=== PATIENT | female | born 1990 | race Caucasian/White ===

== ENCOUNTER 2017-12-15 11:12 | Emergency (ER) | payer BC ==
--- NOTE | 2017-12-15 13:32 | ER ---
Nurse's Notes 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 Transition of care: patient was not received from another setting of care. Onset of symptoms was December 15, 2017. Risk Assessment: Do you want to hurt yourself or someone else? Patient reports no desire to harm self or others. Initial Sepsis Screen: Does the patient meet any 2 criteria? No. Patient's initial sepsis screen is negative. Does the patient have a suspected source of infection? Yes: Skin breakdown/wound. Care prior to arrival: None. 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 - Social history:: Smoking status: Patient uses tobacco products, smokes one pack cigarettes per day. - Ebola Screening: : Patient negative for fever greater than or equal to 101.5 degrees Fahrenheit, and additional compatible Ebola Virus Disease symptoms Patient denies exposure to infectious person Patient denies travel to an Ebola-affected area in the 21 days before illness onset No symptoms or risks identified at this time. - Family history:: not pertinent. Screenin:30 Abuse screen: Denies threats or abuse. Denies injuries from another. Nutritional ph screening: No deficits noted. Tuberculosis screening: No symptoms or risk factors identified. Fall Risk None identified. Assessment: 13:30 General: Appears in no apparent distress. uncomfortable, Behavior is calm, cooperative, ph appropriate for age. Pain: Complains of pain in groin. Neuro: Level of Consciousness is awake, alert, obeys commands, Oriented to person, place, time, situation. Cardiovascular: Capillary refill is > 3 seconds Patient's skin is warm and dry. Respiratory: Airway is patent Respiratory effort is even, unlabored. Derm: Skin is healthy with good turgor, Skin is pink, warm \\T\\ dry. Abscess located on clitoris is dime sized, has purulent drainage, is red, is raised, was lanced by patient prior to arrival, Reports. Musculoskeletal: Circulation, motion, and sensation intact. Range of motion: intact in all extremities. Vital Signs: 11:31 Pulse 95 MON; Resp 16; Temp 97.9; Pulse Ox 98% ; Weight 60.33 kg; Height 5 ft. 4 in. sg (162.56 cm); Pain 7/10; 11:34 BP 107 / 71; sg 13:45 BP 118 / 78; Pulse 91; Resp 18; Temp 98.2; Pulse Ox 99% on R/A; ph 11:31 Body Mass Index 22.83 (60.33 kg, 162.56 cm) ED Course: 11:13 Patient arrived in ED. as 11:13 Moni Beltran is Private Physician. as 11:14 Nathalie Maher MD is Private Physician. as 11:30 Arm band placed on. sg 11:31 Triage completed. sg 12:50 Patient did not have IV access during this emergency room visit. ph 13:13 Russell Garcias MD is Attending Physician. navin 13:23 Iman Judd, RN is Primary Nurse. ph 13:30 Nathalie Maher MD is Referral Physician. navin 13:30 Patient has correct armband on for positive identification. Bed in low position. Call ph light in reach. Side rails up X 1. Pulse ox on. NIBP on. 13:30 Wound culture swab sent to lab. 3 13:30 Assist provider with pelvic exam: Specimens sent to lab. Patient tolerated well. ph 16:19 Arm band placed on. ph Administered Medications: 13:45 Drug: [place] 10 mg-325 mg 1 tabs Route: PO; ph 13:50 Follow up: Response: No adverse reaction ph 13:45 Drug: Doxycycline 200 mg Route: PO; ph 13:50 Follow up: Response: No adverse reaction ph Outcome: 13:31 Discharge ordered by . navin 13:52 Patient left the ED. ph 13:52 Discharged to home ambulatory, with significant other. ph 13:52 Condition: good 13:52 Discharge instructions given to patient, Instructed on discharge instructions, follow up and referral plans. medication usage, Demonstrated understanding of instructions, follow-up care, medications, Prescriptions given X 2. Addendum: 12/19/2017 08:15 Addendum: Culture Results: Positive urine culture. No further action required. Bacteria i w sensitive to prescribed antibiotic. Signatures: Johann Raymond RN RN sg Anderson, Corey, MD MD cha Martinez, Amelia as Peggy Street RN RN Iman Judd RN RN Kyle, Devi [facility] Corrections: (The following items were deleted from the chart) 12/15 16:15 11:30 General: Appears in no apparent distress. uncomfortable, Behavior is calm, ph cooperative, appropriate for age, ph 16:15 11:30 Pain: Complains of pain in groin ph ph 16:15 11:30 Neuro: Level of Consciousness is awake, alert, obeys commands, Oriented to ph person, place, time, situation, ph 16:15 11:30 Cardiovascular: Capillary refill is > 3 seconds Patient's skin is warm and dry. phph 16:15 11:30 Respiratory: Airway is patent Respiratory effort is even, unlabored, ph ph 16:15 11:30 Derm: Skin is healthy with good turgor, Skin is pink, warm \\T\\ dry. Abscess located ph on clitoris is dime sized, has purulent drainage, is red, is raised, was lanced by patient prior to arrival, Reports ph 16:15 11:30 Musculoskeletal: Circulation, motion, and sensation intact. Range of motion: ph intact in all extremities, ph 16:16 11:30 Patient has correct armband on for positive identification. Bed in low position. ph Call light in reach. Side rails up X 1. ph 16:16 11:30 Pulse ox on. NIBP on. ph ph
--- NOTE | 2017-12-15 13:32 | EDPHYS ---
Physician Documentation [facility] Name: Cheryl Dinh Age: 27 yrs Sex: Female : 1990 Arrival Date: 12/15/2017 Time: 11:13 Bed 15 Private MD: Nathalie Maher K ED Physician Russell Garcias HPI: 12/15 13:26 This 27 yrs old Female presents to ER via Ambulatory with complaints of navin Abscess. 13:26 The patient presents with an abscess of the clitoris. Description: The affected area is navin small, localized, draining, erythematous, hot, swollen, tense. Onset: The symptoms/episode began/occurred 3 day(s) ago. Possible cause(s): unknown. Associated signs and symptoms: The patient has no apparent associated signs or symptoms. Modifying factors: the symptoms are alleviated by remaining still, the symptoms are aggravated by nothing. Severity of symptoms: At their worst the symptoms were moderate, in the emergency department the symptoms are unchanged. The patient has not experienced similar symptoms in the past. 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 - Social history:: Smoking status: Patient uses tobacco products, smokes one pack cigarettes per day. - Ebola Screening: : Patient negative for fever greater than or equal to 101.5 degrees Fahrenheit, and additional compatible Ebola Virus Disease symptoms Patient denies exposure to infectious person Patient denies travel to an Ebola-affected area in the 21 days before illness onset No symptoms or risks identified at this time. - Family history:: not pertinent. ROS: 13:26 Constitutional: Negative for fever, chills, and weight loss, Eyes: Negative for injury, navin pain, redness, and discharge, ENT: Negative for injury, pain, and discharge, Neck: Negative for injury, pain, and swelling, Cardiovascular: Negative for chest pain, palpitations, and edema, Respiratory: Negative for shortness of breath, cough, wheezing, and pleuritic chest pain, Abdomen/GI: Negative for abdominal pain, nausea, vomiting, diarrhea, and constipation, Back: Negative for injury and pain, MS/Extremity: Negative for injury and deformity, Skin: Negative for injury, rash, and discoloration, Neuro: Negative for headache, weakness, numbness, tingling, and seizure, Psych: Negative for depression, anxiety, suicide ideation, homicidal ideation, and hallucinations, Allergy/Immunology: Negative for hives, rash, and allergies, Endocrine: Negative for neck swelling, polydipsia, polyuria, polyphagia, and marked weight changes, Hematologic/Lymphatic: Negative for swollen nodes, abnormal bleeding, and unusual bruising. 13:26 : Positive for pelvic pain, of the clitoris. Exam: 13:26 Constitutional: This is a well developed, well nourished patient who is awake, alert, navin and in no acute distress. Head/Face: Normocephalic, atraumatic. Eyes: Pupils equal round and reactive to light, extra-ocular motions intact. Lids and lashes normal. Conjunctiva and sclera are non-icteric and not injected. Cornea within normal limits. Periorbital areas with no swelling, redness, or edema. ENT: Nares patent. No nasal discharge, no septal abnormalities noted. Tympanic membranes are normal and external auditory canals are clear. Oropharynx with no redness, swelling, or masses, exudates, or evidence of obstruction, uvula midline. Mucous membranes moist. Neck: Trachea midline, no thyromegaly or masses palpated, and no cervical lymphadenopathy. Supple, full range of motion without nuchal rigidity, or vertebral point tenderness. No Meningismus. Chest/axilla: Normal chest wall appearance and motion. Nontender with no deformity. No lesions are appreciated. Cardiovascular: Regular rate and rhythm with a normal S1 and S2. No gallops, murmurs, or rubs. Normal PMI, no JVD. No pulse deficits. Respiratory: Lungs have equal breath sounds bilaterally, clear to auscultation and percussion. No rales, rhonchi or wheezes noted. No increased work of breathing, no retractions or nasal flaring. Abdomen/GI: Soft, non-tender, with normal bowel sounds. No distension or tympany. No guarding or rebound. No evidence of tenderness throughout. Back: No spinal tenderness. No costovertebral tenderness. Full range of motion. Skin: Warm, dry with normal turgor. Normal color with no rashes, no lesions, and no evidence of cellulitis. MS/ Extremity: Pulses equal, no cyanosis. Neurovascular intact. Full, normal range of motion. Neuro: Awake and alert, GCS 15, oriented to person, place, time, and situation. Cranial nerves II-XII grossly intact. Motor strength 5/5 in all extremities. Sensory grossly intact. Cerebellar exam normal. Normal gait. 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 Vital Signs: 11:31 Pulse 95 MON; Resp 16; Temp 97.9; Pulse Ox 98% ; Weight 60.33 kg; Height 5 ft. 4 in. sg (162.56 cm); Pain 7/10; 11:34 BP 107 / 71; sg 13:45 BP 118 / 78; Pulse 91; Resp 18; Temp 98.2; Pulse Ox 99% on R/A; ph 11:31 Body Mass Index 22.83 (60.33 kg, 162.56 cm) MDM: 13:13 Patient medically screened. [facility] 12/15 13:26 Order name: Urine Culture [facility] 12/15 13:26 Order name: Wound Culture [facility] 12/15 13:50 Order name: Urine Dipstick--Ancillary (enter results) 12/15 13:50 Order name: Urine --Ancillary (enter results) 12/15 13:26 Order name: Urine Dipstick-Ancillary (obtain specimen); Complete Time: 13:51 [facility] 12/15 13:26 Order name: Urine Test (obtain specimen); Complete Time: 13:51 [facility] Administered Medications: 13:45 Drug: [place] 10 mg-325 mg 1 tabs Route: PO; ph 13:50 Follow up: Response: No adverse reaction ph 13:45 Drug: Doxycycline 200 mg Route: PO; ph 13:50 Follow up: Response: No adverse reaction ph Disposition: 12/15/17 13:31 Discharged to Home. Impression: Cutaneous abscess of other sites - genital. - Condition is Stable. - Discharge Instructions: Skin Abscess, How to Take a Sitz Bath, Skin Abscess, [id number]. - Prescriptions for Tylenol- Codeine #3 300-30 mg Oral Tablet - take 2 tablets by ORAL route every 6 hours As needed; 24 tablet. Doxycycline Hyclate 100 mg Oral Tablet - take 1 tablet by ORAL route every 12 hours; 20 tablet. - Medication Reconciliation Form, Thank You Letter, Antibiotic Education, Prescription Opioid Use form. - Follow up: Nathalie Maher MD; When: Today; Reason: Recheck today's complaints, Continuance of care, Re-evaluation by your physician. - Problem is new. - Symptoms have improved. Signatures: Dispatcher [employer] EDJohann Price RN RN Russell Thomas MD MD cha Hall, Patricia, RN RN ph Corrections: (The following items were deleted from the chart) 13:52 13:31 12/15/2017 13:31 Discharged to Home. Impression: Cutaneous abscess of other sites ph - genital. Condition is Stable. Forms are Medication Reconciliation Form, Thank You Letter, Antibiotic Education, Prescription Opioid Use. Follow up: Nathalie Maher; When: Today; Reason: Recheck today's complaints, Continuance of care, Re-evaluation by your physician. Problem is new. Symptoms have improved. navin
[2017-12-15] MEDS ORDERED: DOXYCYCLINE 100 MG CAP PO ONE (13:37)
[2017-12-15] MEDS ORDERED: HYDROCODONE/APAP 10/325 TAB ONE (13:37)
[2017-12-15 14:02] LABS: Urine Blood NEGATIVE (NEG); Urine Glucose NEGATIVE (NEG); Urine Protein NEGATIVE (NEG)
== END 2017-12-15 13:52 | disposition home or self-care (01) ==
LOC: ER 11:12
DX: N76.4 Abscess of vulva (principal); F17.210 Nicotine dependence, cigarettes, uncomplicated
CPT/HCPCS: 81003; 81025; 87070; 87077; 87086; 87088; 87186; 87205; 99284